=== PATIENT | male | born 1985 | race American Indian/Alaskan Native ===

== ENCOUNTER → 2019-05-13 | Outpatient (CLI) | payer OTHER ==
[~2019-05-13] MED LIST: ACET325 PO; ALBU90OI INH; ALBU90OI61 INH; AMOX500 PO; ANTOXYBENA BOTHEARS; ARIP10; Amoxicillin500 MG PO; BENZ100A PO; Cleocin HCl300 MG PO; DICY20 PO; ERYT.5TO OD; IBUP200; IBUP800 PO; LOPE2C PO; METPRE4DP PO; Naprosyn500 MG PO; Norco 5-325 Ta1 EACH PO; OLAN5; OXYACE5T PO; PENVK500 PO; PRED10 PO; PROCODE120 PO; PROM25 PO; PSEU120ER PO; Peridex480 ML SS; RXOXYACE PO; RXTRAM50 PO; Robaxin500 MG PO; TRAM50 PO
[2019-05-13 18:29] LABS: U Amphetamine Screen Not Detected; U Barbituate Screen Not Detected; U Benzodiazapine Screen Not Detected; U Buprenorphine Screen Not Detected; U Cannabinoids Screen DETECTED; U Cocaine Screen Not Detected; U Methadone Screen Not Detected; U Methamphetamine Screen Not Detected; U Opiates Screen Not Detected; U Oxycodone Screen Not Detected; U Phencyclidine Screen Not Detected; U Propoxyphene Screen Not Detected
== END | disposition home or self-care (01) ==
LOC: EDSTATUS 12:09 → LAB SHORT 16:44 → LAB 16:44
PROVIDERS: Registered Nurse Psychiatric/Mental Health
DX: Z51.81 Encounter for therapeutic drug level monitoring (principal); Z79.899 Other long term (current) drug therapy

== ENCOUNTER 2020-01-09 16:19 | Emergency (ER) | payer OTHER ==
[~2020-01-09] VITALS: Ht 182.9 cm; Wt 99.8 kg
[2020-01-09] MEDS ORDERED: NAPR550 PO (17:15)
[2020-01-09] MEDS ORDERED: CYCL10 PO (17:15)
[2020-01-09] MEDS ORDERED: Norco 5-325 Ta1 EACH PO (17:15)
== END 2020-01-09 17:28 | disposition home or self-care (01) ==
LOC: ER 16:19
DX: M54.5 Low back pain (principal)
CPT/HCPCS: 96372-59; 99282-25; J1170; J1885